=== PATIENT | male | born 2000 | race Caucasian/White ===

== ENCOUNTER 2021-09-14 08:41 | Outpatient (CLI) | payer OTHER, SELFPAY ==
--- NOTE | ~2021-09-14 | US_ITS ---
US abdomen complete EXAMINATION: US Abdomen Complete INDICATION: Epigastric pain with nausea PROCEDURE: Realtime High Resolution abdomen ultrasound. COMPARISON: No prior studies for comparison FINDINGS: Gallbladder within normal limits. No gallstones, pericholecystic fluid, gallbladder wall t hickening or biliary dilatation. Common bile duct measures 4 mm. Liver echotexture within normal limits without focal mass. Pancreas within normal limits. Pancreati c tail is obscured by bowel gas. Spleen is unremarkeable. Renal echotexture is within normal limits bilaterally without hydronephrosis, contour deforming mass or renal stone. Right kidney measures 12 c m. Left kidney measures 10 cm. Visualized aspects of the aorta and IVC are within normal limits. Portal vein is patent. No sonograph ic Guerrero's sign indicated by the technologist. IMPRESSION: 1: Normal abdominal ultrasound. Reviewed, dictated and finalized at location A.
== END 2021-09-14 08:42 | disposition home or self-care (01) ==
PROVIDERS: PCP Nurse Practitioner Family; Visit Provider Nurse Practitioner Family
DX: R19.5 Other fecal abnormalities (principal); R11.0 Nausea; R10.13 Epigastric pain
CPT/HCPCS: 76700

== ENCOUNTER 2021-10-01 01:30 | Day surgery (SDC) | payer OTHER, SELFPAY ==
[2021-09-25 12:47] VITALS: BMI 39.7
[2021-10-01 09:57] VITALS: BP 144/83; PULSE 75; RESP 18; TEMP 35.9; O2SAT 98; BMI 39.3
[2021-10-01] MEDS: LACTATED RINGERS 1,000 ML 150 ML IV CONT (10:07)
--- NOTE | 2021-10-01 11:10 | P.PNAN_ITS ---
Anes - Initial Pre Proc Eval Procedure: Operation Date: 10/01/21 11:30 Proposed Procedures p Esophagogastroduodenoscopy - Geovanny Woo MD Date/Time: 10/01/21 11:10 Surgeon: Geovanny Woo MD Pre Op Diagnosis: nausea, epigastric pain Patient Data Age: 21 Gender: M Height: 1.8 m Weight: 128 kg Last Vital Signs Temp 96.7 F L 10/01/21 09:57 Pulse 75 10/01/21 09:57 Resp 18 10/01/21 09:57 BP 144/83 H 10/01/21 09:57 Pulse Ox 98 10/01/21 09:57 O2 Del Method Room Air 10/01/21 09:57 Allergies Allergy/AdvReac Type Severity Reaction Status Date / Time aripiprazole [From [facility]] Allergy Severe Swelling Verified 09/25/21 13:05 of Lip/Tongue/Throat Home Medications Medication Instructions Recorded Confirmed Type ergocalciferol (vitamin D2) 50 mcg 50 mcg PO DAILY 07/18/21 09/25/21 History (2,000 unit) capsule levothyroxine 25 mcg tablet 25 mcg PO DAILY 07/18/21 09/25/21 History ondansetron 4 mg disintegrating 4 mg PO Q8H 07/18/21 09/25/21 History tablet propranolol 60 mg capsule,24 60 mg PO DAILY 07/18/21 09/25/21 History hr,extended release topiramate 50 mg capsule 50 mg PO DAILY 07/18/21 09/25/21 History sprinkle,extended release 24 hr celecoxib 200 mg capsule (Celebrex) 200 mg PO DAILY 08/29/21 09/25/21 History cyclobenzaprine 5 mg tablet 5 mg PO TID PRN Spasms 08/29/21 09/25/21 History dicyclomine 20 mg tablet 20 mg PO TID 1 month #90 tabs 08/29/21 09/25/21 Rx pantoprazole 40 mg tablet,delayed 40 mg PO QAM #30 tabs 09/03/21 09/25/21 Rx release omeprazole 40 mg capsule,delayed 40 mg PO DAILY 09/25/21 09/25/21 History release Patient hx anesthesia problems: none Family hx anesthesia problems: none Results Review: All pre-operative results and documents have been reviewed as part of the pre- operative evaluation. [facility] Past Medical History Medical History Abdominal pain Epigastric pain HTN (hypertension) Loose stools Nausea Tobacco use Social History Social History Years smoked: 5 Smoking status: Current every day smoker Tobacco type: e-cigarettes/vaping Alcohol intake: never Substance use: never Substance use type: does not use Living arrangements: with family Additional living arrangements comments: lives with father Spiritual care concerns: No Anes - Eval Final PreProcedure Day of Procedure 10/01/21 11:10 Patient weight: morbidly obese Heart: regular rate and rhythm Lungs: clear to auscultation Airway: Mallampati scale class II Neurological: alert and oriented Last oral intake: >/= 8 hours ASA classification: III Emergent: no Anesthetic plan: proceed Anesthesia type and monitoring: general GIVS and standard monitoring Results Review: All pre-operative results and documents have been reviewed as part of the pre- operative evaluation. Informed Consent: The patient's anesthetic plan and its attendant risks and benefits were discussed with the patient/family/POA. Questions were solicited and answers provided to the satisfaction of the patient/family/POA.
--- NOTE | 2021-10-01 11:11 | PM.HPGS ---
History of Present Illness History of Present Illness Consent: Risks, benefits, and alternatives have been discussed and questions answered. Patient agrees to proceed with procedure. Chief complaint: nausea, epigastric pain Narrative: Kentrell Tobin is a 21 year old male with intermittent upper abdominal pain, bentyl is helping, also using ppi. Never had egd. Abd ultrasound normal. Review of Systems Constitutional: Constitutional: Denies headache(s) and Denies weakness Eyes: Eyes: Denies blurry vision ENT: Reports Normal hearing present, Denies headache(s) and Denies neck pain Cardiovascular: Cardiovascular: Denies chest pain and Denies dyspnea Respiratory: Respiratory: Denies dyspnea Gastrointestinal: Gastrointestinal: Reports no additional gastrointestinal complaints Genitourinary: Genitourinary: Denies dysuria Musculoskeletal: Musculoskeletal: Denies neck pain Integumentary/Breasts: Skin/Breast: Denies dry skin Neurologic: Reports Normal hearing present, Denies headache(s) and Denies weakness Psychiatric: Psychiatric: Denies anxiety Endocrine: Endocrine: Denies change in body appearance Hematologic/Lymphatic: Hematologic/Lymphatic: Denies easy bleeding Allergic/Immunologic: Allergic/Immunologic: Denies urticaria PMFSH Past Medical History Medical History Abdominal pain Epigastric pain HTN (hypertension) Loose stools Nausea Tobacco use Social History Social History Years smoked: 5 Smoking status: Current every day smoker Tobacco type: e-cigarettes/vaping Alcohol intake: never Substance use: never Substance use type: does not use Living arrangements: with family Additional living arrangements comments: lives with father Spiritual care concerns: No Meds Home Medications and Allergies Home Medications Medication Instructions Recorded Confirmed Type ergocalciferol (vitamin D2) 50 mcg 50 mcg PO DAILY 07/18/21 09/25/21 History (2,000 unit) capsule levothyroxine 25 mcg tablet 25 mcg PO DAILY 07/18/21 09/25/21 History ondansetron 4 mg disintegrating 4 mg PO Q8H 07/18/21 09/25/21 History tablet propranolol 60 mg capsule,24 60 mg PO DAILY 07/18/21 09/25/21 History hr,extended release topiramate 50 mg capsule 50 mg PO DAILY 07/18/21 09/25/21 History sprinkle,extended release 24 hr celecoxib 200 mg capsule (Celebrex) 200 mg PO DAILY 08/29/21 09/25/21 History cyclobenzaprine 5 mg tablet 5 mg PO TID PRN Spasms 08/29/21 09/25/21 History dicyclomine 20 mg tablet 20 mg PO TID 1 month #90 tabs 08/29/21 09/25/21 Rx pantoprazole 40 mg tablet,delayed 40 mg PO QAM #30 tabs 09/03/21 09/25/21 Rx release omeprazole 40 mg capsule,delayed 40 mg PO DAILY 09/25/21 09/25/21 History release Allergies Allergy/AdvReac Type Severity Reaction Status Date / Time aripiprazole [From [facility]] Allergy Severe Swelling Verified 09/25/21 13:05 of Lip/Tongue/Throat Vital Signs Vital Signs - 24 hr 10/01/21 09:57 Temperature 96.7 F L Pulse Rate 75 Respiratory Rate 18 Blood Pressure 144/83 H Pulse Oximetry 98 Oxygen Delivery Room Air Exam Const: General: comfortable and no acute distress HENMT: General nose exam: Normal nares present Eyes: General: appearance normal, both eyes and all related structures Neck: Neck: no JVD Resp: Auscultation: clear to auscultation bilaterally Cardio: Rate: regular rate Rhythm: regular rhythm GI: Inspection: non-distended GI Palp: Yes Soft to palpation Skin: General skin exam: normal color Neuro: General: gait normal Speech: normal speech Extrem: General: normal to inspection Psych: Mental Status: mental status grossly normal Assessment and Plan Assessment and plan (1) Abdominal pain: Code(s): R10.9 - Unspecified abdominal pain Status: Acute Assessment and Plan: egd with bx
[2021-10-01 11:29] VITALS: BP 118/70; PULSE 74; RESP 20; O2SAT 99
[2021-10-01 11:39] VITALS: BP 120/77; PULSE 82; RESP 20; O2SAT 98
[2021-10-01 11:49] VITALS: BP 114/77; PULSE 64; RESP 20; O2SAT 97
== END 2021-10-01 12:11 | disposition home or self-care (01) ==
PROVIDERS: PCP Nurse Practitioner Family; Visit Provider Internal Medicine Gastroenterology
PROC: 0DJ08ZZ Inspection of Upper Intestinal Tract, Via Natural or Artificial Opening Endoscopic (ICD-10-PCS; CPT 43235; principal; 2021-10-01 11:30)
DX: R11.0 Nausea (principal); K44.9 Diaphragmatic hernia without obstruction or gangrene; K31.84 Gastroparesis; K29.50 Unspecified chronic gastritis without bleeding; R10.13 Epigastric pain; I10 Essential (primary) hypertension; R19.5 Other fecal abnormalities; F17.210 Nicotine dependence, cigarettes, uncomplicated; E03.9 Hypothyroidism, unspecified; E66.9 Obesity, unspecified; Z68.39 Body mass index [BMI] 39.0-39.9, adult
CPT/HCPCS: 43239; 88305; 88342; J2704; J7120

== ENCOUNTER 2021-10-09 08:59 | Outpatient (CLI) | payer OTHER, SELFPAY ==
--- NOTE | ~2021-10-09 | NM_ITS ---
EXAM: NM gastric emptying study DATE: 10/09/2021 14:31 INDICATION: Upper abdominal pain TECHNIQUE: A gastric emptying study was performed using the methodology of Bryn SAMANIEGO, et al. J Nucl Med 2007; 48:568-572. The patient was given a meal consisting of 2 scrambled eggs labeled with 0.96 mCi Tc-99m sulfur colloid, 2 slices of toast, two packages of jam, and approximately 120 mL of water. Simultaneous anterior and posterior 1-min images of the abdomen were obtained with the patient supin e at multiple time points over a total period of 4 hours. The geometric mean of anterior and posterio r views was determined, and the percentage retention was calculated for each time point. COMPARISON: None. FINDINGS: Gastric retention of the radiotracer-labeled meal was 46%, 39%, and 3% at the 1-hour, 2-hour, and 4-h our time points, respectively. With this technique, apparent rapid gastric emptying is suggested by < 30% gastric retention at 1 hour. Delayed gastric emptying is defined by gastric retention of >90% at 1 hour, >60% retention at 2 hours, or >10% retention at 4 hours. IMPRESSION: 1. Normal gastric emptying. Reviewed, dictated and finalized at location A. IMPRESSION: 1. Normal gastric emptying.
== END 2021-10-09 09:00 | disposition home or self-care (01) ==
LOC: ANHIMG 09:01
PROVIDERS: PCP Nurse Practitioner Family; Visit Provider Internal Medicine Gastroenterology
DX: R10.9 Unspecified abdominal pain (principal); R11.0 Nausea
CPT/HCPCS: 78264; A9541

== ENCOUNTER 2022-09-02 02:48 | Day surgery (SDC) | payer OTHER, SELFPAY ==
[2022-08-07 13:58] VITALS: BMI 41.4
--- NOTE | 2022-08-30 17:37 | P.PNAN_ITS ---
Anes - Eval Pre Procedure Procedure: Operation Date: 09/02/22 07:30 Proposed Procedures p Colonoscopy - Geovanny Woo MD Date/Time: 08/30/22 17:37 Pre Op Diagnosis: Other fecal abnormalities, Unspecified abdom.pain Patient Data Age: 22 Gender: M Height: 1.83 m Weight: 138.5 kg Allergies Allergy/AdvReac Type Severity Reaction Status Date / Time aripiprazole [From [facility]] Allergy Severe Swelling Verified 08/20/22 14:05 of Lip/Tongue/Throat Home Medications Medication Instructions Recorded Confirmed Type ergocalciferol (vitamin D2) 50 mcg 50 mcg PO DAILY 07/18/21 08/20/22 History (2,000 unit) capsule levothyroxine 25 mcg tablet 25 mcg PO DAILY 07/18/21 08/20/22 History ondansetron 4 mg disintegrating 4 mg PO Q8H PRN Nausea And Vomiting 07/18/21 08/20/22 History tablet propranolol 60 mg capsule,24 60 mg PO DAILY 07/18/21 08/20/22 History hr,extended release celecoxib 200 mg capsule (Celebrex) 200 mg PO DAILY 08/29/21 08/20/22 History cyclobenzaprine 5 mg tablet 5 mg PO TID PRN Spasms 08/29/21 08/20/22 History sumatriptan succinate 50 mg tablet 50 mg PO ONCE PRN Migraine Headache 02/19/22 08/20/22 History topiramate 50 mg capsule 100 mg PO DAILY 05/07/22 08/20/22 History sprinkle,extended release 24 hr venlafaxine 37.5 mg 37.5 mg PO DAILY 05/07/22 08/20/22 History capsule,extended release 24 hr cholestyramine (with sugar) 4 gram 4 g PO BID #348.6 grams 07/16/22 08/20/22 Rx oral powder (Questran) dexlansoprazole 30 mg 30 mg PO BID 1 month #60 caps 07/16/22 08/20/22 Rx capsule,biphase delayed release (Dexilant) pregabalin 75 mg capsule 75 mg PO BID 07/16/22 08/20/22 History hyoscyamine sulfate 0.125 mg tablet See Rx Instructions .Route 08/19/22 08/20/22 Rx .COMPLEX #120 tabs Patient hx anesthesia problems: none Family hx anesthesia problems: none Results Review: All pre-operative results and documents have been reviewed as part of the pre- operative evaluation. [facility] Past Medical History Medical History Abdominal pain Chronic back pain Epigastric pain GERD (gastroesophageal reflux disease) HLD (hyperlipidemia) HTN (hypertension) Hyperthyroidism IBS (irritable bowel syndrome) Loose stools Migraines, neuralgic Nausea Tobacco use Surgical History Surgical History (Updated 07/16/22 @ 13:04 by David Crocker) S/P epidural steroid injection Social History Social History Years smoked: 5 Smoking status: Current every day smoker Tobacco type: e-cigarettes/vaping Alcohol intake: never Substance use: never Substance use type: does not use Living arrangements: with family Additional living arrangements comments: lives with father Spiritual care concerns: No Exam Day of Procedure 08/30/22 17:37
[2022-09-02 06:10] VITALS: BP 141/92; PULSE 84; RESP 20; TEMP 36.4; O2SAT 97; BMI 40.5
[2022-09-02] MEDS: LACTATED RINGERS 1,000 ML 150 ML IV CONT (06:30)
--- NOTE | 2022-09-02 07:11 | P.PNAN_ITS ---
Anes - Eval Final PreProcedure Day of Procedure 09/02/22 07:11 Patient weight: morbidly obese Heart: regular rate and rhythm Lungs: clear to auscultation Airway: Mallampati scale class III Neurological: alert and oriented Last oral intake: >/= 8 hours ASA classification: III Emergent: no Anesthetic plan: proceed Anesthesia type and monitoring: general GIVS and standard monitoring Results Review: All pre-operative results and documents have been reviewed as part of the pre- operative evaluation. Informed Consent: The patient's anesthetic plan and its attendant risks and benefits were discussed with the patient/family/POA. Questions were solicited and answers provided to the satisfaction of the patient/family/POA.
--- NOTE | 2022-09-02 07:33 | PM.HPGS ---
History of Present Illness History of Present Illness Consent: Risks, benefits, and alternatives have been discussed and questions answered. Patient agrees to proceed with procedure. Chief complaint: Other fecal abnormalities, Unspecified abdom.pain Narrative: Kentrell Tobin is a 22 year old male with chronic abdominal pain and loose stool, GES, ultrasound and EGD with bx unremarkable, never had colonoscopy. Stool studies negative for infection. Review of Systems Constitutional: Constitutional: Denies headache(s) and Denies weakness Eyes: Eyes: Denies blurry vision ENT: Reports Normal hearing present, Denies headache(s) and Denies neck pain Cardiovascular: Cardiovascular: Denies chest pain and Denies dyspnea Respiratory: Respiratory: Denies dyspnea Gastrointestinal: Gastrointestinal: Reports no additional gastrointestinal complaints Genitourinary: Genitourinary: Denies dysuria Musculoskeletal: Musculoskeletal: Denies neck pain Integumentary/Breasts: Skin/Breast: Denies dry skin Neurologic: Reports Normal hearing present, Denies headache(s) and Denies weakness Psychiatric: Psychiatric: Denies anxiety Endocrine: Endocrine: Denies change in body appearance Hematologic/Lymphatic: Hematologic/Lymphatic: Denies easy bleeding Allergic/Immunologic: Allergic/Immunologic: Denies urticaria PMFSH Past Medical History Medical History Abdominal pain Chronic back pain Epigastric pain GERD (gastroesophageal reflux disease) HLD (hyperlipidemia) HTN (hypertension) Hyperthyroidism IBS (irritable bowel syndrome) Loose stools Migraines, neuralgic Nausea Tobacco use Surgical History Surgical History (Updated 07/16/22 @ 13:04 by David Crocker) S/P epidural steroid injection Social History Social History Years smoked: 5 Smoking status: Current every day smoker Tobacco type: e-cigarettes/vaping Alcohol intake: never Substance use: never Substance use type: does not use Living arrangements: with family Additional living arrangements comments: lives with father Spiritual care concerns: No Meds Home Medications and Allergies Home Medications Medication Instructions Recorded Confirmed Type ergocalciferol (vitamin D2) 50 mcg 50 mcg PO DAILY 07/18/21 09/02/22 History (2,000 unit) capsule levothyroxine 25 mcg tablet 25 mcg PO DAILY 07/18/21 09/02/22 History ondansetron 4 mg disintegrating 4 mg PO Q8H PRN Nausea And Vomiting 07/18/21 09/02/22 History tablet propranolol 60 mg capsule,24 60 mg PO DAILY 07/18/21 09/02/22 History hr,extended release celecoxib 200 mg capsule (Celebrex) 200 mg PO DAILY 08/29/21 09/02/22 History cyclobenzaprine 5 mg tablet 5 mg PO TID PRN Spasms 08/29/21 09/02/22 History sumatriptan succinate 50 mg tablet 50 mg PO ONCE PRN Migraine Headache 02/19/22 09/02/22 History topiramate 50 mg capsule 100 mg PO DAILY 05/07/22 09/02/22 History sprinkle,extended release 24 hr venlafaxine 37.5 mg 37.5 mg PO DAILY 05/07/22 09/02/22 History capsule,extended release 24 hr cholestyramine (with sugar) 4 gram 4 g PO BID #348.6 grams 07/16/22 09/02/22 Rx oral powder (Questran) dexlansoprazole 30 mg 30 mg PO BID 1 month #60 caps 07/16/22 09/02/22 Rx capsule,biphase delayed release (Dexilant) pregabalin 75 mg capsule 75 mg PO BID 07/16/22 09/02/22 History hyoscyamine sulfate 0.125 mg tablet See Rx Instructions .Route 08/19/22 09/02/22 Rx .COMPLEX #120 tabs Allergies Allergy/AdvReac Type Severity Reaction Status Date / Time aripiprazole [From [facility]] Allergy Severe Swelling Verified 09/02/22 06:18 of Lip/Tongue/Throat Vital Signs Vital Signs - 24 hr 09/02/22 06:10 Temperature 97.5 F L Pulse Rate 84 Respiratory Rate 20 Blood Pressure 141/92 H Pulse Oximetry 97 Oxygen Delivery Room Air Exam Const: General: comfortable and no acute distress HENMT: Face/Nose/Sinus: No
[2022-09-02 07:51] VITALS: BP 128/79; PULSE 82; RESP 20; O2SAT 98
[2022-09-02 08:01] VITALS: BP 122/74; PULSE 75; RESP 17; O2SAT 99
[2022-09-02 08:11] VITALS: BP 123/76; PULSE 66; RESP 23; O2SAT 98
== END 2022-09-02 08:16 | disposition home or self-care (01) ==
PROVIDERS: PCP Nurse Practitioner Family; Visit Provider Internal Medicine Gastroenterology
PROC: 0DJD8ZZ Inspection of Lower Intestinal Tract, Via Natural or Artificial Opening Endoscopic (ICD-10-PCS; CPT 45378; principal; 2022-09-02 07:30)
DX: R10.9 Unspecified abdominal pain (principal); R19.5 Other fecal abnormalities; D12.4 Benign neoplasm of descending colon; G89.29 Other chronic pain; K58.9 Irritable bowel syndrome, unspecified; M54.9 Dorsalgia, unspecified; K21.9 Gastro-esophageal reflux disease without esophagitis; E05.90 Thyrotoxicosis, unspecified without thyrotoxic crisis or storm; E78.5 Hyperlipidemia, unspecified; F17.290 Nicotine dependence, other tobacco product, uncomplicated; E66.9 Obesity, unspecified; Z68.41 Body mass index [BMI] 40.0-44.9, adult
CPT/HCPCS: 45385; 45380; 88305; J2704; J7120